=== PATIENT | male | born 1960 | race Two or more races ===

== ENCOUNTER 2019-01-11 08:04 | Emergency (ER) | payer BC ==
[2019-01-11 08:16] VITALS: BP 145/86; Ht 172.7 cm
== END 2019-01-11 10:07 | disposition home or self-care (01) ==
LOC: ED 08:04
DX: S83.91XA Sprain of unspecified site of right knee, initial encounter (principal); I10 Essential (primary) hypertension; V03.09XA Pedestrian with other conveyance injured in collision with car, pick-up truck or van in nontraffic accident, initial encounter; Y93.89 Activity, other specified; Y92.413 State road as the place of occurrence of the external cause; Y99.8 Other external cause status

== ENCOUNTER 2020-12-29 10:08 | Inpatient (IN) | payer OTHER ==
[~2020-12-29] VITALS: Ht 172.7 cm; Wt 77.3 kg
[2020-12-29 10:36] LABS: BASOPHIL % 0.3 % (0.2-1.5); PLATELET COUNT 222 x10^3mcL (152-348); RED CELL DISTRIBUTION WIDTH 13.5 % (12.1-16.2)
[2020-12-29 10:57] LABS: CALCIUM 9.7 mg/dL (8.5-10.1); CREATININE SERUM 1.5 mg/dL (0.7-1.3); POTASSIUM SERUM 4.3 mmol/L (3.5-5.1)
[2020-12-29 11:56] LABS: microscopic required? NO
[2020-12-29] MEDS ORDERED: LOTENSIN20 MG (12:23)
[2020-12-29 12:38] LABS: UA SPECIFIC GRAVITY 1.015 (1.005-1.035); urine erythrocyte NEGATIVE (NEGATIVE)
[2020-12-29 15:04] VITALS: BP 132/93
[2020-12-29 21:56] VITALS: BP 127/89
[2020-12-30 05:37] VITALS: BP 140/93
[2020-12-30 07:27] LABS: BASOPHIL % 0.3 % (0.2-1.5); RED CELL DISTRIBUTION WIDTH 13.5 % (12.1-16.2)
[2020-12-30 07:52] LABS: CALCIUM 7.9 mg/dL (8.5-10.1); CARBON DIOXIDE 25.7 mmol/L (21-32); CHLORIDE SERUM 102 mmol/L (98-107); CREATININE SERUM 0.9 mg/dL (0.7-1.3); GFR1 > 60 mL/min; GLUCOSE SERUM 218 mg/dL (74-106); LIPASE 404 IU/L (73-393); POTASSIUM SERUM 3.9 mmol/L (3.5-5.1); SODIUM SERUM 135 mmol/L (136-145)
[2020-12-30 07:53] LABS: CHOLESTEROL 115 mg/dL (<200); HDL CHOLESTEROL 23 mg/dL (40-60); TRIGLYCERIDES 317 mg/dL (<150)
[2020-12-30 08:46] VITALS: BP 150/95
[2020-12-30 09:00] LABS: PLATELET COUNT 114 x10^3mcL (152-348)
[2020-12-30] MEDS ORDERED: LANTUS SOLOS100 U/M1 SC (12:34)
[2020-12-30] MEDS ORDERED: BLOOD LANCETS1 EACH TOP (12:34)
[2020-12-30] MEDS ORDERED: TEST STRIPS1 EACH MC (12:35)
[2020-12-30] MEDS ORDERED: METFORMIN HCL1000 M2 PO (12:37)
[2020-12-30 12:46] VITALS: BP 132/89
[2020-12-30 13:37] VITALS: BP 132/89
== END 2020-12-30 17:46 | disposition home or self-care (01) | DRG 638 ==
LOC: ED 10:08 → MU 12:19
PROVIDERS: Emergency Medicine; ADMIT Hospitalist; ATTEND Hospitalist
DX: E11.65 Type 2 diabetes mellitus with hyperglycemia (principal); N17.9 Acute kidney failure, unspecified; E87.1 Hypo-osmolality and hyponatremia; I10 Essential (primary) hypertension; J45.909 Unspecified asthma, uncomplicated; Z83.3 Family history of diabetes mellitus; D72.829 Elevated white blood cell count, unspecified; Z20.822 Contact with and (suspected) exposure to COVID-19
CPT/HCPCS: 82962; 83880; G0378; J1644; J1815; J7030; U0003